=== PATIENT | female | born 1950 | race Caucasian/White ===

== ENCOUNTER 2018-03-26 09:55 | Inpatient (IN) | payer MEDICARE, BC ==
[2018-03-26] MEDS ORDERED: CEFAZOLIN 2 GM/50 ML (PMX) 50 ML IVPB (11:00)
[2018-03-26] MEDS: LACTATED RINGER'S 1,000 ML IV* (11:14)
[2018-03-26] MEDS ORDERED: HYDROmorphONE 0.5 MG/0.5 ML SYG IV (12:00)
[2018-03-26] MEDS ORDERED: ONDANSETRON 4 MG INJ IV ×2 (12:00→15:30)
[2018-03-26] MEDS ORDERED: AL HYDROX/MG HYDROX/SIMETH 30 ML CUP PO (12:00)
[2018-03-26] MEDS ORDERED: CARISOPRODOL 350 MG TAB PO (12:00)
[2018-03-26] MEDS ORDERED: traMADol 50 MG TAB PO ×2 (12:00→13:00)
[2018-03-26] MEDS ORDERED: CEPASTAT LOZENGE MT (12:00)
[2018-03-26] MEDS ORDERED: DIPHENHYDRAMINE 50 MG INJ IV ×2 (12:00→15:30)
[2018-03-26] MEDS ORDERED: ACETAMINOPHEN 325 MG TAB PO (12:00)
[2018-03-26] MEDS ORDERED: BISACODYL 10 MG SUPP PR (12:00)
[2018-03-26] MEDS ORDERED: NALOXONE (0.4 MG/ML) INJ IV (12:00)
[2018-03-26] MEDS ORDERED: POLYMYXIN/BACITRACIN 1L IRRIG ×2 (12:04→12:21)
[2018-03-26] MEDS ORDERED: BUPIVACAINE 0.25% (MPF) 30 ML INJ (12:04)
[2018-03-26] MEDS ORDERED: PROPOFOL 20 ML (12:06)
[2018-03-26] MEDS ORDERED: CEFAZOLIN 1 GM INJ (12:06)
[2018-03-26] MEDS ORDERED: MIDAZOLAM 1 MG/ML 2 ML INJ (12:06)
[2018-03-26] MEDS ORDERED: ROCURONIUM 50 MG INJ ×2 (12:06→13:52)
[2018-03-26] MEDS ORDERED: SURGIFOAM POWDER 1 GM KIT (12:21)
[2018-03-26] MEDS: CEFAZOLIN 1 GM/50 ML (PMX) 50 ML IVPB ×2 (12:30→21:13)
[2018-03-26] MEDS: BUPIVACAINE 0.25%/EPI (MDV) 50 ML VIAL INJ (13:26)
[2018-03-26] MEDS: THROMBIN 5000 UNIT VIAL (13:27)
[2018-03-26] MEDS ORDERED: ACETAMINOPHEN 1000MG/100ML IV 100 ML (13:57)
[2018-03-26] MEDS ORDERED: METOCLOPRAMIDE 10 MG INJ (13:58)
[2018-03-26] MEDS ORDERED: DEXAMETHASONE 4 MG/ML 1 ML INJ (13:58)
[2018-03-26] MEDS ORDERED: ONDANSETRON 4 MG INJ (13:58)
[2018-03-26] MEDS: GELATIN SIZE 100 SPONGE TOP (14:02)
[2018-03-26] MEDS ORDERED: PHENYLephrine (100 MCG/ML) 5ML SYG (14:10)
[2018-03-26] MEDS ORDERED: SUGAMMADEX SODIUM 200 MG/2 ML VIAL IV (14:30)
[2018-03-26] MEDS: HYDROmorphONE 0.2 MG/ML PCA IV (15:13)
[2018-03-26] MEDS ORDERED: LABETALOL HCL 20MG INJ IV (15:30)
[2018-03-26] MEDS ORDERED: hydrALAzine 20 MG INJ IV (15:30)
[2018-03-26] MEDS ORDERED: FENTAnyl 50 MCG/ML VIAL IV ×3 (15:30)
[2018-03-26] MEDS ORDERED: EPHEDrine SULFATE 50 MG/5 ML SYG IV (15:30)
[2018-03-26] MEDS ORDERED: METOCLOPRAMIDE 10 MG INJ IV (15:30)
[2018-03-26] MEDS ORDERED: MEPERIDINE 25 MG INJ IV (15:30)
[2018-03-26] MEDS ORDERED: HYDROmorphONE 1 MG/5 ML IV SYRINGE IV ×3 (15:30)
[2018-03-26] MEDS: D5W-0.45 NACL + KCL 20 MEQ 1,000 ML IV ×2 (17:41→21:14)
[2018-03-26] MEDS: [UNRECOGNIZED DRUG - OTHER] XX (20:30)
[2018-03-26] MEDS ORDERED: DESVENLAFAXINE SUCCINATE 25 MG PO (21:00)
[2018-03-26] MEDS: DOCUSATE SODIUM 100 MG CAP PO (21:13)
[2018-03-26] MEDS: LORAZEPAM 0.5 MG TAB PO (21:13)
[2018-03-26] MEDS: PROGESTERONE 100 MG CAP PO (21:14)
[2018-03-26] MEDS: DEXAMETHASONE 10 MG/ML 1 ML INJ IV (22:24)
[2018-03-27] MEDS: [UNRECOGNIZED DRUG - OTHER] XX ×3 (04:30→20:30)
[2018-03-27] MEDS: CEFAZOLIN 1 GM/50 ML (PMX) 50 ML IVPB (04:35)
[2018-03-27 05:11] LABS: ADD MAN DIFF? NO
[2018-03-27 05:12] LABS: BASOPHILS % 0.1 % (0.0-2.0); HEMATOCRIT 37.2 % (37.0-47.0); HEMOGLOBIN 12.4 g/dl (12.0-16.0); LYMPHOCYTES # 0.7 10^3/ul (0.8-2.9); LYMPHOCYTES % 6.8 % (15.0-51.0); MEAN CORPUSCULAR HEMOGLOBIN 32.5 pg (29.0-33.0); MEAN CORPUSCULAR HGB CONC 33.3 g/dl (32.0-37.0); MEAN CORPUSCULAR VOLUME 97.4 fl (82.0-101.0); MEAN PLATELET VOLUME 10.3 fl (7.4-10.4); MONOCYTE # 0.2 10^3/ul (0.3-0.9); NEUTROPHIL # 9.5 10^3/ul (1.6-7.5); NEUTROPHILS % 90.7 % (39.0-77.0); PLATELET COUNT 209 10^3/UL (140-415); RED BLOOD COUNT 3.82 10^6/ul (4.20-5.40)
[2018-03-27 05:12] LABS: WHITE BLOOD COUNT 10.5 10^3/ul (4.8-10.8)
[2018-03-27] MEDS: D5W-0.45 NACL + KCL 20 MEQ 1,000 ML IV ×2 (05:31→07:47)
[2018-03-27] MEDS: DEXAMETHASONE 4 MG/ML 1 ML INJ IV ×4 (05:32→23:54)
[2018-03-27 06:08] LABS: ANION GAP 12 (8-16); BLOOD UREA NITROGEN 10 mg/dl (7-20); CALCIUM 9.2 mg/dl (8.4-10.2); CARBON DIOXIDE 27 mmol/L (21-31); CHLORIDE 104 mmol/L (97-110); CREATININE 0.69 mg/dl (0.44-1.00); GLUCOSE 189 mg/dl (70-220); MAGNESIUM 1.8 mg/dl (1.7-2.5); POTASSIUM 4.2 mmol/L (3.5-5.1); SODIUM 139 mmol/L (135-144)
[2018-03-27] MEDS: traMADol 50 MG TAB PO (08:05)
[2018-03-27] MEDS: DOCUSATE SODIUM 100 MG CAP PO ×2 (08:09→20:23)
[2018-03-27] MEDS: LORATADINE 10 MG TAB PO (11:29)
[2018-03-27] MEDS: LORAZEPAM 0.5 MG TAB PO (11:29)
[2018-03-27] MEDS: PROGESTERONE 100 MG CAP PO (20:23)
[2018-03-28] MEDS: [UNRECOGNIZED DRUG - OTHER] XX (04:30)
[2018-03-28] MEDS: LORAZEPAM 0.5 MG TAB PO (08:18)
[2018-03-28] MEDS: LORATADINE 10 MG TAB PO (08:18)
[2018-03-28] MEDS: DOCUSATE SODIUM 100 MG CAP PO (08:18)
== END 2018-03-28 15:05 | disposition home or self-care (01) | DRG 30 ==
LOC: REC 09:55 → MS1 17:12
PROC: 00BW0ZZ Excision of Cervical Spinal Cord, Open Approach (ICD-10-PCS; principal; 2018-03-26 12:00)
PROC: 4A11X4G Monitoring of Peripheral Nervous Electrical Activity, Intraoperative, External Approach (ICD-10-PCS; 2018-03-26 12:00)
DX: G96.19 Other disorders of meninges, not elsewhere classified (principal); M48.03 Spinal stenosis, cervicothoracic region; M54.13 Radiculopathy, cervicothoracic region; F41.9 Anxiety disorder, unspecified
CPT/HCPCS: 72040; 72141; 80048; 83735; 85025; 86999; 87086; 88304; 97116; 97161; 97530